=== PATIENT | female | born 1960 | race Caucasian/White ===

== ENCOUNTER 2019-01-21 07:46 | Emergency (ER) | payer OTHER ==
[~2019-01-21] VITALS: Ht 167.6 cm; Wt 63.5 kg
[2019-01-21] MEDS ORDERED: PLAVIX75 MG PO (07:52)
[2019-01-21] MEDS ORDERED: LIPITOR20 MG PO (07:52)
[2019-01-21] MEDS ORDERED: ASA81 MG PO (07:52)
[2019-01-21] MEDS ORDERED: TOPROL XL25 M1 PO (07:52)
== END 2019-01-21 11:12 | disposition home or self-care (01) ==
LOC: ER 07:46
DX: B34.9 Viral infection, unspecified (principal)